=== PATIENT | female | born 1940 | race Caucasian/White ===

== ENCOUNTER 2022-03-30 07:56 | Emergency (ER) | payer OTHER, BC ==
[2022-03-30 08:04] VITALS: BP 142/84; PULSE 103; RESP 18; TEMP 98.9; BMI 22.3
[2022-03-30] MEDS ORDERED: IBUPROFEN 600 MG TABLET (FP) PO ONE ×2 (08:06→08:47)
[2022-03-30] MEDS ORDERED: IBUPROFEN 400 MG TABLET (FP) PO ONE ×2 (08:48→08:49)
== END 2022-03-30 09:01 | disposition home or self-care (01) ==
LOC: EDSEX → EDBD 07:56 → FER 07:56
DX: U07.1 COVID-19 (principal)
CPT/HCPCS: 0241U-QW; 70360-TC-FY; 87651; 99284-25